=== PATIENT | male | born 2000 | race Caucasian/White ===

== ENCOUNTER 2024-11-15 17:32 | Inpatient (IN) | payer OTHER ==
[2024-11-15] MEDS: LACTATED RINGERS SOLUTION 1000 ML INFUS.BAG IV ONE (18:23)
[2024-11-15 18:24] LABS: VENOUS BASE EXCESS -3.4 mmol/L (-2-2); VENOUS O2 SATURATION 47.8 % (70-80); VENOUS PCO2 42.6 mmHg (38-52); VENOUS PH 7.337 (7.310-7.410)
[2024-11-15 18:29] LABS: BASOPHILS # 0.08 x10^3/uL (0.01-0.08); EOSINOPHIL % 2.1 % (0.8-7.0); EOSINOPHILS # 0.27 x10^3/uL (0.04-0.54); HEMATOCRIT 45.2 % (40.1-51.0); HEMOGLOBIN 16.1 g/dL (13.7-17.5); MCHC 35.6 g/dl (32.3-36.5); MEAN CELL VOLUME 88.8 fl (79.0-92.2); MEAN PLT VOLUME 13.6 fl (9.4-12.4); MONOCYTE # 0.91 x10^3/uL (0.30-0.82); MONOCYTE % 7.1 % (5.3-12.2); PLATELET COUNT 217 x10^3/uL (163-337); RDW 11.5 % (11.9-15.3)
[2024-11-15 18:48] LABS: CHLORIDE 89 mmol/L (98-107); POTASSIUM 4.8 mmol/L (3.5-5.1); SODIUM 126 mmol/L (136-145)
[2024-11-15 18:52] LABS: ALBUMIN 4.3 g/dl (3.4-5.0); ANION GAP 12 mmol/L (4-13); BLOOD UREA NITROGEN 17.3 mg/dL (7-18); CALCIUM 10.3 mg/dL (8.5-10.1); CO2 24 mmol/L (21-32); MAGNESIUM 2.2 mg/dL (1.8-2.4)
[2024-11-15 18:55] LABS: CREATININE 1.4 mg/dL (0.55-1.3); PHOSPHOROUS 4.4 mg/dL (2.5-4.9); SGOT/AST 290 U/L (15-37); SGPT/ALT 575 U/L (13-61)
[2024-11-15 18:56] LABS: BILIRUBIN,TOTAL 0.6 mg/dL (0.2-1); TOT PROT 8.3 g/dl (6.4-8.2)
[2024-11-15 18:57] LABS: ALK PHOS 131 U/L (45-117)
[2024-11-15 19:06] LABS: GLUCOSE,RANDOM 751 mg/dL (74-106)
[2024-11-15 19:08] LABS: URINE APPEARANCE CLEAR; URINE BILIRUBIN NEGATIVE (NEGATIVE); URINE COLOR YELLOW; URINE GLUCOSE (UA) 3+ (NEGATIVE); URINE KETONE 1+ (NEGATIVE); URINE LEUK ESTERASE NEGATIVE (NEGATIVE); URINE NITRITE NEGATIVE (NEGATIVE); URINE PROTEIN NEGATIVE (NEGATIVE); URINE UROBILINOGEN 0.2 mg/dL (0.2-1.0)
[2024-11-15 19:40] LABS: BILIRUBIN,DIRECT 0.2 mg/dL (0.0-0.2)
[2024-11-15] MEDS: SODIUM CHLORIDE 1,000 ML IV STA ×2 (19:42→21:29)
[2024-11-15 19:51] LABS: HCV DIAGNOSTIC IN-HOUSE W/RFLX NON-REACTIVE (NONREACTIVE)
[2024-11-15 19:52] LABS: HIV INTERPRETATION NEGATIVE (NEGATIVE)
[2024-11-15 20:05] LABS: CHLORIDE 95 mmol/L (98-107); POTASSIUM 4.5 mmol/L (3.5-5.1); SODIUM 129 mmol/L (136-145)
[2024-11-15 20:07] LABS: CALCIUM 9.8 mg/dL (8.5-10.1)
[2024-11-15 20:08] LABS: ALBUMIN 3.9 g/dl (3.4-5.0); ANION GAP 11 mmol/L (4-13); BLOOD UREA NITROGEN 16.4 mg/dL (7-18); CO2 23 mmol/L (21-32)
[2024-11-15 20:11] LABS: CREATININE 1.1 mg/dL (0.55-1.3); SGOT/AST 262 U/L (15-37); SGPT/ALT 522 U/L (13-61)
[2024-11-15 20:12] LABS: BILIRUBIN,TOTAL 0.5 mg/dL (0.2-1)
[2024-11-15 20:13] LABS: TOT PROT 7.4 g/dl (6.4-8.2)
[2024-11-15 20:14] LABS: ALK PHOS 115 U/L (45-117)
[2024-11-15 20:27] LABS: GLUCOSE,RANDOM 530 mg/dL (74-106)
[2024-11-15] MEDS: SODIUM CHLORIDE 0.45%/POT 20 MEQ/1,000 ML INFUS.BAG IV SCH (21:41)
[2024-11-15] MEDS: INSULIN REGULAR 100 UNITS in SODIUM CHLORIDE 99 ML IVPB SCH (21:46)
[2024-11-15] MEDS: HEPARIN NA (PORCINE) 5,000 UNITS/ML 1ML VIAL SQ SCH (23:38)
[2024-11-15] MEDS: MUPIROCIN 2% TOPICAL OINTMENT FOR DECOLONIZATION NS SCH (23:38)
[2024-11-15] MEDS: CHLORHEXIDINE GLUCONATE 4% CLEANSER FOR DECOLONIZATION TP SCH (23:38)
[2024-11-16] MEDS: D5-NS + 20 MEQ KCL - 20 MEQ/1,000 ML INFUS.BAG IV SCH (00:29)
[2024-11-16 02:44] LABS: POTASSIUM 3.3 mmol/L (3.5-5.1)
[2024-11-16 02:45] LABS: CALCIUM 9.4 mg/dL (8.5-10.1)
[2024-11-16 02:46] LABS: BLOOD UREA NITROGEN 14.6 mg/dL (7-18)
[2024-11-16 02:49] LABS: CREATININE 0.8 mg/dL (0.55-1.3)
[2024-11-16] MEDS: POTASSIUM CHLORIDE TABS 20 MEQ TABLET.ER (FP) PO ONE (06:33)
[2024-11-16] MEDS: INSULIN ASPART SLIDING SCALE (NOVOLOG) 1 VIAL SQ SCH (06:41)
[2024-11-16 06:58] LABS: HEMATOCRIT 40.3 % (40.1-51.0); HEMOGLOBIN 14.2 g/dL (13.7-17.5); MCHC 35.2 g/dl (32.3-36.5); MEAN CELL VOLUME 87.4 fl (79.0-92.2); MEAN PLT VOLUME 13.4 fl (9.4-12.4); PLATELET COUNT 182 x10^3/uL (163-337); RDW 11.6 % (11.9-15.3)
[2024-11-16] MEDS: INSULIN GLARGINE (LANTUS) 100 UNITS/ML UNITS SQ SCH (08:30)
[2024-11-16 08:40] LABS: POTASSIUM 3.5 mmol/L (3.5-5.1)
[2024-11-16 08:43] LABS: ALBUMIN 3.6 g/dl (3.4-5.0); CALCIUM 9.2 mg/dL (8.5-10.1); MAGNESIUM 2.1 mg/dL (1.8-2.4)
[2024-11-16 08:46] LABS: CREATININE 0.7 mg/dL (0.55-1.3)
[2024-11-16 08:47] LABS: BILIRUBIN,TOTAL 0.5 mg/dL (0.2-1); PHOSPHOROUS 4.2 mg/dL (2.5-4.9)
[2024-11-16 08:48] LABS: TOT PROT 6.9 g/dl (6.4-8.2)
[2024-11-16] MEDS: POTASSIUM CHLORIDE TABS 20 MEQ TABLET.ER (FP) PO SCH (09:26)
[2024-11-16] MEDS: INSULIN (NOVOLOG) ASPART 100 UNITS/ML 10ML VIAL SQ SCH (12:11)
[2024-11-16 16:11] VITALS: BMI 42.9
[2024-11-17 06:43] LABS: ABSOLUTE IMMATURE GRANULOCYTES 0.07 x10^3/uL (0.0-0.031); BASOPHILS # 0.05 x10^3/uL (0.01-0.08); EOSINOPHIL % 4.9 % (0.8-7.0); EOSINOPHILS # 0.37 x10^3/uL (0.04-0.54); HEMATOCRIT 44.4 % (40.1-51.0); HEMOGLOBIN 15.3 g/dL (13.7-17.5); MCHC 34.5 g/dl (32.3-36.5); MEAN CELL VOLUME 88.6 fl (79.0-92.2); MEAN PLT VOLUME 13.1 fl (9.4-12.4); MONOCYTE % 7.9 % (5.3-12.2); PLATELET COUNT 188 x10^3/uL (163-337); RDW 11.9 % (11.9-15.3)
[2024-11-17 07:01] LABS: POTASSIUM 4.3 mmol/L (3.5-5.1)
[2024-11-17 07:03] LABS: ALBUMIN 3.9 g/dl (3.4-5.0); BLOOD UREA NITROGEN 10.1 mg/dL (7-18); CALCIUM 9.6 mg/dL (8.5-10.1)
[2024-11-17 07:04] LABS: MAGNESIUM 1.9 mg/dL (1.8-2.4)
[2024-11-17 07:06] LABS: CREATININE 0.7 mg/dL (0.55-1.3)
[2024-11-17 07:07] LABS: PHOSPHOROUS 3.6 mg/dL (2.5-4.9)
[2024-11-17 07:08] LABS: BILIRUBIN,TOTAL 0.8 mg/dL (0.2-1); TOT PROT 7.4 g/dl (6.4-8.2)
[2024-11-17] MEDS ORDERED: INSULIN REGULAR 100 UNITS in SODIUM CHLORIDE 99 ML IVPB SCH (12:27)
[2024-11-17 13:19] LABS: HEPATITIS B SURF AG NON-MATERN NON-REACTIVE (NONREACTIVE)
[2024-11-17] MEDS ORDERED: INSULIN ASPART SLIDING SCALE (NOVOLOG) 1 VIAL SQ ONE (16:36)
[2024-11-17] MEDS: INSULIN (NOVOLOG) ASPART 100 UNITS/ML 10ML VIAL SQ SCH (16:46)
[2024-11-17 18:31] LABS: COCAINE, UR NEGATIVE (NEGATIVE); URINE BARBITURATES NEGATIVE (NEGATIVE); URINE BENZODIAZEPINES NEGATIVE (NEGATIVE)
[2024-11-17 18:32] LABS: METHADONE, UR NEGATIVE (NEGATIVE); PHENCYCLIDINE,URINE NEGATIVE (NEGATIVE)
[2024-11-17 18:35] LABS: OPIATES, URI NEGATIVE (NEGATIVE); URINE AMPHETAMINES NEGATIVE (NEGATIVE)
[2024-11-17 18:58] LABS: INR 1.08 (0.83-1.09); PROTHROMBIN TIME (PATIENT) 11.9 SEC (9.7-13.0)
[2024-11-17 19:00] LABS: ACTIVATED PTT 30.8 SECONDS (25.2-36.5)
[2024-11-17] MEDS: INSULIN ASPART SLIDING SCALE (NOVOLOG) 1 VIAL SQ SCH (21:39)
[2024-11-17] MEDS: ENOXAPARIN NA (PORCINE) 40 MG/0.4 ML DISP.SYRIN SQ SCH (21:39)
[2024-11-17] MEDS ORDERED: HEPARIN NA (PORCINE) 5,000 UNITS/ML 1ML VIAL SQ SCH (22:00)
[2024-11-18 08:59] LABS: ABSOLUTE IMMATURE GRANULOCYTES 0.09 x10^3/uL (0.0-0.031); BASOPHILS # 0.07 x10^3/uL (0.01-0.08); EOSINOPHIL % 4.1 % (0.8-7.0); EOSINOPHILS # 0.35 x10^3/uL (0.04-0.54); HEMATOCRIT 46.6 % (40.1-51.0); HEMOGLOBIN 15.9 g/dL (13.7-17.5); MCHC 34.1 g/dl (32.3-36.5); MEAN CELL VOLUME 90.1 fl (79.0-92.2); MONOCYTE # 0.63 x10^3/uL (0.30-0.82); MONOCYTE % 7.4 % (5.3-12.2); PLATELET COUNT 160 x10^3/uL (163-337)
[2024-11-18 09:26] LABS: ALBUMIN 3.9 g/dl (3.4-5.0)
[2024-11-18 09:28] LABS: CREATININE 0.8 mg/dL (0.55-1.3)
[2024-11-18 09:29] LABS: TOT PROT 7.7 g/dl (6.4-8.2)
[2024-11-18 09:31] LABS: BILIRUBIN,TOTAL 0.9 mg/dL (0.2-1)
[2024-11-18] MEDS ORDERED: INSULIN GLARGINE (LANTUS) 100 UNITS/ML UNITS SQ SCH ×2 (10:00)
[2024-11-18] MEDS: INSULIN GLARGINE (LANTUS) 100 UNITS/ML UNITS SQ SCH (10:48)
[2024-11-18] MEDS: INSULIN (NOVOLOG) ASPART 100 UNITS/ML 10ML VIAL SQ SCH (10:49)
[2024-11-19 02:30] VITALS: RESP 18
[2024-11-19 08:08] LABS: ABSOLUTE IMMATURE GRANULOCYTES 0.14 x10^3/uL (0.0-0.031); BASOPHILS # 0.06 x10^3/uL (0.01-0.08); EOSINOPHIL % 3.7 % (0.8-7.0); EOSINOPHILS # 0.33 x10^3/uL (0.04-0.54); HEMATOCRIT 44.3 % (40.1-51.0); HEMOGLOBIN 15.2 g/dL (13.7-17.5); MCHC 34.3 g/dl (32.3-36.5); MEAN CELL VOLUME 89.7 fl (79.0-92.2); MEAN PLT VOLUME 13.1 fl (9.4-12.4); MONOCYTE # 0.76 x10^3/uL (0.30-0.82); MONOCYTE % 8.5 % (5.3-12.2); PLATELET COUNT 197 x10^3/uL (163-337)
[2024-11-19 08:22] LABS: POTASSIUM 4.3 mmol/L (3.5-5.1)
[2024-11-19 08:25] LABS: CALCIUM 9.8 mg/dL (8.5-10.1)
[2024-11-19 08:26] LABS: ALBUMIN 3.9 g/dl (3.4-5.0); BLOOD UREA NITROGEN 10.8 mg/dL (7-18); MAGNESIUM 2.1 mg/dL (1.8-2.4)
[2024-11-19 08:27] LABS: INR 1.09 (0.83-1.09)
[2024-11-19 08:28] LABS: CREATININE 0.8 mg/dL (0.55-1.3)
[2024-11-19 08:29] LABS: BILIRUBIN,TOTAL 0.9 mg/dL (0.2-1); TOT PROT 7.5 g/dl (6.4-8.2)
[2024-11-19] MEDS: INSULIN ASPART SLIDING SCALE (NOVOLOG) 1 VIAL SQ SCH (17:08)
[2024-11-20 08:42] LABS: ABSOLUTE IMMATURE GRANULOCYTES 0.14 x10^3/uL (0.0-0.031); BASOPHILS # 0.06 x10^3/uL (0.01-0.08); EOSINOPHIL % 3.9 % (0.8-7.0); EOSINOPHILS # 0.33 x10^3/uL (0.04-0.54); HEMATOCRIT 46.6 % (40.1-51.0); HEMOGLOBIN 15.8 g/dL (13.7-17.5); MCHC 33.9 g/dl (32.3-36.5); MEAN CELL VOLUME 89.8 fl (79.0-92.2); MONOCYTE # 0.82 x10^3/uL (0.30-0.82); MONOCYTE % 9.6 % (5.3-12.2); PLATELET COUNT 221 x10^3/uL (163-337); RDW 12.2 % (11.9-15.3)
[2024-11-20 08:48] LABS: INR 1.2 (0.83-1.09); PROTHROMBIN TIME (PATIENT) 13.1 SEC (9.7-13.0)
[2024-11-20 09:00] LABS: POTASSIUM 3.9 mmol/L (3.5-5.1)
[2024-11-20 09:13] LABS: CALCIUM 9.9 mg/dL (8.5-10.1)
[2024-11-20 09:14] LABS: BLOOD UREA NITROGEN 11.4 mg/dL (7-18)
[2024-11-20 09:17] LABS: CREATININE 0.8 mg/dL (0.55-1.3)
[2024-11-20 09:18] LABS: BILIRUBIN,TOTAL 0.9 mg/dL (0.2-1); TOT PROT 7.7 g/dl (6.4-8.2)
[2024-11-21 07:30] LABS: ABSOLUTE IMMATURE GRANULOCYTES 0.14 x10^3/uL (0.0-0.031); BASOPHILS # 0.05 x10^3/uL (0.01-0.08); EOSINOPHIL % 4.6 % (0.8-7.0); EOSINOPHILS # 0.39 x10^3/uL (0.04-0.54); HEMATOCRIT 45.4 % (40.1-51.0); HEMOGLOBIN 15.4 g/dL (13.7-17.5); MCHC 33.9 g/dl (32.3-36.5); MEAN CELL VOLUME 91.3 fl (79.0-92.2); MEAN PLT VOLUME 12.9 fl (9.4-12.4); MONOCYTE # 0.83 x10^3/uL (0.30-0.82); MONOCYTE % 9.7 % (5.3-12.2); PLATELET COUNT 200 x10^3/uL (163-337); RDW 12.2 % (11.9-15.3)
[2024-11-21 07:36] LABS: INR 1.13 (0.83-1.09); PROTHROMBIN TIME (PATIENT) 12.3 SEC (9.7-13.0)
[2024-11-21 07:52] LABS: POTASSIUM 4.1 mmol/L (3.5-5.1)
[2024-11-21 07:59] LABS: CALCIUM 9.8 mg/dL (8.5-10.1)
[2024-11-21 08:00] LABS: ALBUMIN 3.9 g/dl (3.4-5.0); BLOOD UREA NITROGEN 10.7 mg/dL (7-18)
[2024-11-21 08:03] LABS: CREATININE 0.8 mg/dL (0.55-1.3)
[2024-11-21 08:05] LABS: BILIRUBIN,TOTAL 0.8 mg/dL (0.2-1); TOT PROT 7.6 g/dl (6.4-8.2)
[2024-11-21 08:21] LABS: BILIRUBIN,DIRECT 0.3 mg/dL (0.0-0.2)
[2024-11-21] MEDS: INSULIN GLARGINE (LANTUS) 100 UNITS/ML UNITS SQ ONE (09:37)
[2024-11-21 10:41] VITALS: BP 124/71; PULSE 91; TEMP 98.1
[2024-11-21] MEDS ORDERED: INSULIN (NOVOLOG) ASPART 100 UNITS/ML 10ML VIAL SQ SCH (11:00)
[2024-11-22] MEDS ORDERED: INSULIN GLARGINE (LANTUS) 100 UNITS/ML UNITS SQ SCH (07:00)
== END 2024-11-21 11:30 | disposition short-term general hospital (02) | DRG 420 ==
LOC: JER 17:32 → JERBED 20:58 → JICU 21:58 → J6S 11-17 12:12
PROVIDERS: ADMIT Internal Medicine Pulmonary Disease; ATTEND Internal Medicine
DX: E11.00 Type 2 diabetes mellitus with hyperosmolarity without nonketotic hyperglycemic-hyperosmolar coma (NKHHC) (principal); N17.9 Acute kidney failure, unspecified; K76.0 Fatty (change of) liver, not elsewhere classified; E66.01 Morbid (severe) obesity due to excess calories; Z68.41 Body mass index [BMI] 40.0-44.9, adult; E86.0 Dehydration; R74.01 Elevation of levels of liver transaminase levels; R79.89 Other specified abnormal findings of blood chemistry
CPT/HCPCS: 0241U-QW; 36415; 71045-TC-FY; 74178-TC; 76705-TC; 80048; 80053; 80061; 80307; 81003; 82010; 82248; 82550; 82728; 82787; 82803; 82962; 82977; 83036; 83516; 83540; 83550; 83690; 83735; 83930; 84100; 84443; 84466; 85025; 85027; 85610; 85730; 86160; 86705; 86708; 86709; 86803; 87086; 87340; 87389; 87517; 87635; 87902; 93005; 93010; 93306-TC; 93975; 99291; J3480; Q9967